=== PATIENT | male | born 1950 | race Caucasian/White ===

== ENCOUNTER → 2024-07-21 16:14 | Outpatient (REF) | payer MEDICARE, OTHER, SELFPAY | LOC: CLAB 16:14 | PROVIDERS: ATTENDING PHYSICIAN Podiatrist Foot Surgery | DX: M86.9 Osteomyelitis, unspecified (principal) | CPT/HCPCS: 88304; 88305; 88311; 87070; 87075; 87147; 87176; 87186; 87205 ==